=== PATIENT | male | born 1970 | race Two or more races ===

== ENCOUNTER 2024-11-16 13:09 | Emergency (ER) | payer MEDICAID, SELFPAY ==
[2024-11-16 13:10] VITALS: BMI 37.4
--- NOTE | 2024-11-16 13:12 | EKG_ITS ---
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
[2024-11-16 13:19] VITALS: PULSE 80
--- NOTE | 2024-11-16 13:20 | XR_ITS ---
Examination: AP chest single view Technique: Portable AP sitting chest single view. Date and time: November 16, 2024, 1348 hrs. Indications: Onset chest pain today. Findings: Mild enlargement left ventricle. Ectatic thoracic aorta. 9 mm pulmonary nodule right upper lobe which may contain calcium No pneumonia or pulmonary edema. Mild osteopenia. Impression: No pneumonia or pulmonary edema. 9 mm pulmonary nodule right upper lobe, in the absence of prior chest films recommend 3 month follow-up PA lateral chest
[2024-11-16 13:21] VITALS: BP 239/149; BP 244/135; PULSE 87; RESP 24; TEMP 36.7; O2SAT 99
--- NOTE | 2024-11-16 13:25 | EDNOTE_ITS ---
ED Chest Pain RME/HPI General Chief Complaint: Chest Pain Stated Complaint: CHEST PAIN Time Seen by Provider: 11/16/24 13:25 Arrival date/time: 11/16/24 13:09 Limitations: no limitations RME / HPI RME / HPI narrative: 54 year old male with history of hypertension, diabetes, and hyperlipidemia with medication noncompliance presents to the ED for evaluation of acute onset chest pain beginning ~ 45 minutes prior to arrival while sitting watching tv. Described as a tightness sensation that is located most to the left side of chest with radiation to his left neck and jaw, rating 9/10 in severity. Accompanied by diaphoresis. Denies nausea or vomiting. Denies any known cardiac history. Denies shortness of breath. Related Data Allergies Allergy/AdvReac Type Severity Reaction Status Date / Time No Known Allergies Allergy Verified 11/16/24 13:10 Review of Systems Review of Systems Systems Reviewed: All systems reviewed, normal except as documented Past Medical History Past Medical History CARDIAC: Negative Congestive Heart Failure RESPIRATORY: Negative Chronic Obstructive Pulmonary Disease (COPD) GENITOURINARY: Negative Renal Disease ENDOCRINE: Positive Diabetes Mellitus Type 2; Negative Diabetes Mellitus Type 1 Social History SMOKING STATUS: Never smoker ED Exam General Limitations: Present no limitations General appearance: Present alert and other (diaphoretic, tachypneic, appears to be in pain ) Head Head exam: Present atraumatic, normocephalic and normal inspection Eye Eye exam: Present normal appearance, PERRL and EOMI ENT ENT exam: Present normal exam, normal oropharynx and mucous membranes moist Neck Neck exam: Present normal inspection, full ROM and trachea midline Chest Chest inspection: Present normal inspection and symmetric chest wall rise Respiratory Respiratory exam: Present normal lung sounds bilaterally Cardiovascular Cardiovascular exam: Present regular rate, normal rhythm and normal heart sounds Abdominal Exam Abdominal exam: Present soft and normal bowel sounds Extremities Exam Extremities exam: Present normal inspection and full ROM Back Exam Back exam: Present normal inspection and full ROM Neurological Exam Neurological exam: Present alert, oriented X3 and CN II-XII intact Psychiatric Psychiatric exam: Present normal affect and normal mood Skin Skin exam: Present warm, intact, normal color and diaphoresis Course Quality Measures none Orders Category Date Time Status Surgical Instrument Repair Specialist NOW Care 11/16/24 13:19 Completed Continuous Pulse Oximetry NOW Care 11/16/24 13:19 Completed EKG (ED ONLY) *Do not use* NOW Care 11/16/24 13:12 Completed Insert IV NOW Care 11/16/24 13:19 Completed Consult to Cardiology Stat Cons 11/16/24 13:20 Ordered CA echo doppler complete Stat Exams 11/16/24 13:41 Taken EKG (ED Only) Stat Exams 11/16/24 13:12 Draft XR chest 1V portable Stat Exams 11/16/24 13:20 Completed B-Type Natriuretic Peptide Stat Lab 11/16/24 13:24 Completed CBC Stat Lab 11/16/24 13:24 Completed Comprehensive Metabolic Panel Stat Lab 11/16/24 13:24 Completed Magnesium Stat Lab 11/16/24 13:24 Completed Partial Thromboplastin Time Stat Lab 11/16/24 13:24 Completed Path Review Blood Smear Stat Lab 11/16/24 13:24 Completed Prothrombin Time with INR Stat Lab 11/16/24 13:24 Completed Troponin I Stat Lab 11/16/24 13:24 Completed Aspirin Med 11/16/24 13:27 Discontinued 325 mg PO X1 ONE Heparin Inj Med 11/16/24 13:27 Discontinued 5,000 unit IVP X1 ONE Heparin/D5w 25K 250 ML Ivpb [Heparin in D5w Ivpb] Med 11/16/24 13:30 Discontinued 25,000 unit in 250 ml IV 10 units/kg/hr Morphine Inj Med 11/16/24 13:27 Discontinued 4 mg IVP X1 ONE Nitroglycerin [Nitrostat 1/150] Med 11/16/24 13:31 Discontinued 0.4 mg SL .STK-MED ONE Nitroglycerin/D5w 50 MG IVPB [Nitroglycerin in D5w Ivpb Med 11/16/24 13:30 Discontinued ] 50 mg in 250 ml IV 5 mcg/min Ondansetron Inj [Zofran Inj] Med 11/16/24 13:32 Discontinued 4 mg IVP X1 ONE Vital Signs Vital signs: Vital Signs Pulse Rate 80 11/16/24 13:19 Pulse ox is 99% on room air which is adequate. Chest Pain MDM Narrative MDM Narrative:: Jeane Huff am scribing for and in the presence of Dr. Bolanos. 1410: EMS here to transfer the patient. Patient data External records reviewed:: None (No previous ED visits for review ) Clinical information provided by:: patient Social determinants that could affect healthcare access:: none Patient has the following chronic illnesses:: HTN, DM, HLD with medication noncompliance How is presenting disease/condition affected by chronic disease/condition?: exacerbated by Evaluation data The following diagnostics were reviewed and interpreted by me:: lab results and EKG tracing(s) (EKG @ 13:15. NSR, HR 85, LAD, no ectopy, ST elevation in lead I and aVL as well as V1 and V2, ST depression in II III and aVF, positive STEMI. ) Lab and/or radiology exams considered but not ordered:: None Interpretation Summary: As noted above Medications / Prescriptions Medications or Prescriptions considered but not ordered:: None Medication administrations:: Medication Administration History Discontinued Medications Aspirin (Aspirin 325 Mg Tablet) 325 mg PO X1 ONE Stop: 11/16/24 13:28 Last Admin: 11/16/24 13:40 Dose: 325 mg Documented By: TONNY Heparin Sodium (Porcine) (Heparin Sod Inj 5000 Unit/Ml Vial) 5,000 unit IVP X1 ONE Stop: 11/16/24 13:28 Last Admin: 11/16/24 13:39 Dose: 5,000 unit Documented By: TONNY Co-signed By: LUIS Heparin Sodium/Dextrose (Heparin In D5w Ivpb) 25,000 unit in 250 mls @ 10.206 mls/hr IV .Q24H KIM; Protocol Stop: 11/30/24 13:29 Last Admin: 11/16/24 13:41 Dose: 10 units/kg/hr, 10.206 mls/hr Documented By: TONNY Co-signed By: LUIS Nitroglycerin/Dextrose (Nitroglycerin In D5w Ivpb) 50 mg in 250 mls @ 1.5 mls/hr IV .Q24H PRN; Protocol PRN Reason: PER PROTOCOL Stop: 12/16/24 13:29 Last Admin: 11/16/24 13:50 Dose: 5 mcg/min, 1.5 mls/hr Documented By: TONNY Morphine Sulfate (Morphine Sulf Inj 10 Mg/Ml Vial) 4 mg IVP X1 ONE Stop: 11/16/24 13:28 Last Admin: 11/16/24 13:38 Dose: 4 mg Documented By: TONNY Nitroglycerin (Nitroglycerin 0.4 Mg Subl Btl #25) Confirm Administered Dose 0.4 mg SL .STK-MED ONE Stop: 11/16/24 13:32 Ondansetron HCl (Ondansetron Inj 2 Mg/Ml Inj 2 Ml) 4 mg IVP X1 ONE; Protocol Stop: 11/16/24 13:33 Last Admin: 11/16/24 13:43 Dose: 4 mg Documented By: TONNY See above Consultations Consultation(s) initiated? (list below): Yes Consultation #1 (Physician, Specialty, Details): I spoke with precision lens grinder apprentice Dr. Rangel. Discussed patients PMHx, HPI, ED course, exam findings, and EKG. Advise starting the patient on aspirin, heparin, nitro. He agrees this is a STEMI. Time: 13:26 Consultation #2 (Physician, Specialty, Details): I spoke with transfer nurse and precision lens grinder apprentice Dr. Mcclendon at [facility]. Discussed patients PMHx, HPI, ED course, exam findings, labs, and EKG results. Patient accepted for transfer, ER to ER. Time: 13:43 Diagnosis Chest Pain Differential Diagnosis: stable angina, atypical chest pain, st elevation myocardial infarction, costochondritis and chest pain Most likely diagnosis given after review of the tests above:: STEMI Admission Indicated Admission indicated?: not indicated Admission Request Was there a request for admission?: No Disposition Plan Disposition Plan: Transfer Critical Care Time Critical Care Time Critical Care Time: Yes Total Critical Care Time (min.): 35 Attestation: The high probability of sudden, clinically significant deterioration in the patient's condition required the highest level of my preparedness to intervene urgently. The services I provided to this patient were to treat and/or prevent clinically significant deterioration. Services included the following: chart data review, reviewing nursing notes and/or old charts, documentation time, commercial solar sales consultant collaboration regarding findings and treatment options, medication orders and management, direct patient care, vital sign assessments and ordering, interpreting and reviewing diagnostic studies and lab tests. Aggregate critical care time includes only time during which I was engaged in work directly related to the patient's care, as described above, whether at bedside or elsewhere in the Emergency Department. It did not include time spent performing other reported procedures or the services of residents, students, nurses or physician assistants. Discharge Plan Plan Patient Disposition: [facility] Pt Being Transferred to: [facility] Service Needed for Transfer: Cardiology Discharge Disposition comment: nano Mcclendon accepts transfer Patient condition on transfer: Stable Problem List Clinical Impression: ST elevation (STEMI) myocardial infarction Patient/Caregiver Discharge Instructions Print Language: Puerto Rican Stand Alone Forms: Sharon Award Info., Patient Portal Info Letter
--- NOTE | 2024-11-16 13:25 | PC.NURSE ---
Pt was positive for a stemi buffet server Rivas Infante at bedside gave a verbal order for nitro sublingual had to override in pyxis and give stat dose to pt for chest pain
--- NOTE | 2024-11-16 13:30 | PD.RESCONSUL ---
HPI Data of Consult Consult date: 11/16/24 Primary Care Provider: Physician No Primary/Family Consult Narrative History of present illness: The patient is a 54-year-old man with past medical history of hypertension, diabetes mellitus type 2, hyperlipidemia with noncompliance to medications presented to ED with chief complaint of acute chest pain that started about 45 minutes ago, before coming to the ED. The patient reported that he was watching television this afternoon, and suddenly started having left-sided chest tightness radiating to left neck and jaw, associated with diaphoresis. He reported that couple months ago, he has had similar type of chest pain, but did not seek for any medical attention at that time, and relieved on its own after few minutes. However, that episode of pain was not as intense as this 1. He reported this episode to be painful 9/10 in intensity. He reported that, for past 5 to 6 months, he has not been taking any medications. He denied any dizziness, SOB, orthopnea or PND, palpitations, abdominal pain, any changes in bowel or bladder habit, fever or chills, nausea or vomiting. During my evaluation, his blood pressure was 244/135, pulse rate 87, RR 22, saturating 99% on room air. Labs are significant for white count 14.7, hemoglobin 16.2, coag panel WNL, potassium 4.0, bicarb 27.7, BUN/creatinine 13/1.1, blood sugar 309, magnesium 1.5, T. bili 1.3, troponin 0.055 BNP 38, EKG was significant for ST segment elevation on lead I and aVL including V1 and V2, with reciprocal changes in lead III, aVF. Chest x-ray was significant for 9 mm pulmonary nodule on right upper lobe, and no previous CXR to compare. The patient was given nitroglycerin drip, and ordered aspirin 325 mg x 1, and morphine sulfate 4 mg IV x 1. Cardiology is consultation was done for further management of ACS, and cardiology recommended sublingual nitro, heparin sodium 5000 unit IVP x 1, and was started on heparin drip. PMH: As mentioned above Surgical history: No surgeries Family history: Significant for diabetes mellitus type 2 and hypertension in father and mother Medications: Not taking any medications, noncompliant Allergies: No known allergies Social history: Patient lives with his and children at [place], works in the field, and has good social support. Denied any tobacco use or illicit drug use. Admitted occasional social drinking. cc:: cc: Review of Systems Review of Systems Systems Reviewed: All systems reviewed, normal except as documented Exam Vital Signs Temp Pulse Resp BP Pulse Ox O2 Del Method 98.1 F 87 24 H 239/149 H 99 Room Air 11/16/24 13:21 11/16/24 13:50 11/16/24 13:21 11/16/24 13:50 11/16/24 13:21 11/16/24 13:21 Narrative Exam General: No acute distress, Alert and Oriented x 3, diaphoretic HEENT: Moist mucous membranes, oropharynx clear Neck: Supple, No masses, No JVD CVS: S1S2 Regular rate and rhythm, No murmurs, rubs or gallops Lungs: Clear to auscultation with no accessory use, no wheeze no rhonchi Abd: Soft, NT/ND, +BS, no organomegaly Ext: No edema, warm and well perfused Skin: No rash Psych: In pain Results Labs 11/16/24 13:24 11/16/24 13:24 Labs: Short CBC 11/16/24 Range/Units 13:24 WBC 14.7 H (3.8-10.6) Thou/mm3 Hgb 16.2 H (13.5-16.0) g/dL Hct 45.7 (41.0-53.0) % Plt Count 276 (140-440) Thou/mm3 BMP 11/16/24 13:24 Sodium 140 Potassium 4.0 Chloride 102 Carbon Dioxide 27.1 BUN 13 Creatinine 1.1 Glucose 309 H Calcium 9.7 Cardiac Enzymes 11/16/24 Range/Units 13:24 Troponin I 0.055 H* (0.0-0.045) ng/mL Liver Function 11/16/24 Range/Units 13:24 Total Bilirubin 1.3 H (0.3-1.2) mg/dL AST 15 (0-34) U/L ALT 22 (10-49) U/L Alkaline Phosphatase 117 H (46-116) U/L Albumin 4.9 (3.5-5.0) gm/dL Quality Measures Quality Measures none Medications Home Medications and Allergies Allergies Allergy/AdvReac Type Severity Reaction Status Date / Time No Known Allergies Allergy Verified 11/16/24 13:10 Visit Medications Discontinued Medications Aspirin (Aspirin 325 Mg Tablet) 325 mg PO X1 ONE Stop: 11/16/24 13:28 Last Admin: 11/16/24 13:40 Dose: 325 mg Heparin Sodium (Porcine) (Heparin Sod Inj 5000 Unit/Ml Vial) 5,000 unit IVP X1 ONE Stop: 11/16/24 13:28 Last Admin: 11/16/24 13:39 Dose: 5,000 unit Heparin Sodium/Dextrose (Heparin In D5w Ivpb) 25,000 unit in 250 mls @ 10.206 mls/hr IV .Q24H KIM; Protocol Stop: 11/30/24 13:29 Last Admin: 11/16/24 13:41 Dose: 10 units/kg/hr, 10.206 mls/hr Nitroglycerin/Dextrose (Nitroglycerin In D5w Ivpb) 50 mg in 250 mls @ 1.5 mls/hr IV .Q24H PRN; Protocol PRN Reason: PER PROTOCOL Stop: 12/16/24 13:29 Last Admin: 11/16/24 13:50 Dose: 5 mcg/min, 1.5 mls/hr Morphine Sulfate (Morphine Sulf Inj 10 Mg/Ml Vial) 4 mg IVP X1 ONE Stop: 11/16/24 13:28 Last Admin: 11/16/24 13:38 Dose: 4 mg Ondansetron HCl (Ondansetron Inj 2 Mg/Ml Inj 2 Ml) 4 mg IVP X1 ONE; Protocol Stop: 11/16/24 13:33 Last Admin: 11/16/24 13:43 Dose: 4 mg Assessment & Plan Plan The patient is a 54-year-old man with past medical history of hypertension, diabetes mellitus type 2, hyperlipidemia with noncompliance to medications presented to ED with chief complaint of acute chest pain that started about 45 minutes ago, before coming to the ED. The patient reported that he was watching television this afternoon, and suddenly started having left-sided chest tightness radiating to left neck and jaw, associated with diaphoresis. He reported that couple months ago, he has had similar type of chest pain, but did not seek for any medical attention at that time, and relieved on its own after few minutes. However, that episode of pain was not as intense as this 1. He reported this episode to be painful 9/10 in intensity. He reported that, for past 5 to 6 months, he has not been taking any medications. He denied any dizziness, SOB, orthopnea or PND, palpitations, abdominal pain, any changes in bowel or bladder habit, fever or chills, nausea or vomiting. During my evaluation, his blood pressure was 244/135, pulse rate 87, RR 22, saturating 99% on room air. Labs are significant for white count 14.7, hemoglobin 16.2, coag panel WNL, potassium 4.0, bicarb 27.7, BUN/creatinine 13/1.1, blood sugar 309, magnesium 1.5, T. bili 1.3, troponin 0.055 BNP 38, EKG was significant for ST segment elevation on lead I and aVL including V1 and V2, with reciprocal changes in lead III, aVF. Chest x-ray was significant for 9 mm pulmonary nodule on right upper lobe, and no previous CXR to compare. The patient was given nitroglycerin drip, and ordered aspirin 325 mg x 1, and morphine sulfate 4 mg IV x 1. Cardiology is consultation was done for further management of ACS, and cardiology recommended sublingual nitro, heparin sodium 5000 unit IVP x 1, and was started on heparin drip. #STEMI #Hypertensive emergency Presented with left-sided chest pressure like pain, 9/10 in intensity, was diaphoretic, has history significant for noncompliance with medications for hypertension, diabetes mellitus and hyperlipidemia. EKG revealed ST segment elevation in lead I and aVL with reciprocal changes in lead III and aVF. TTE done was significant for no structural abnormalities, with LVEF 60 to 65%. - Heparin 5000 units IV x 1 - Aspirin 325 mg chewable x 1 - Sublingual nitro x 2 - Started on heparin drip - Transfer to STEMI center [facility] - IV nitroglycerin drip to bring down blood pressure by 20% in past 1 hour, followed by slow stabilization of blood pressure. - Trend troponin - Maintain potassium and magnesium greater than 4 and greater than 2 respectively all the time #Uncontrolled hypertension #Uncontrolled diabetes mellitus type 2 #Hyperlipidemia The patient is noncompliant with his medications - After management of hypertensive emergency, transition to oral antihypertensive - Patient education on diabetes mellitus, hypertension and hyperlipidemia - Atorvastatin 40 Mg daily at night Rest of the management deferred to primary ED physician. Thank you for cardiology consultation. We appreciate for the opportunity to participate in this patient care. The patient's management plan was discussed with my attending physician MD Rasta Barajas MD, PGY3 Attending Provider Attestation/Addendum I have personally seen and examined the patient separately on the above date of service and discussed the plan of care with the resident. I reviewed the resident Dr. Rasta Smith consultation progress note and agree with the resident findings and plan in the note above and have also edited the documentation to reflect my findings and plan. 84-year-old male with a past medical history of essential hypertension, type 2 diabetes mellitus, hyperlipidemia, obesity, noncompliant with medications and doctor visits presented to the emergency department for chief complaint of chest pain that started about 45 minutes ago before coming to the ED. Patient was apparently watching his television and was resting and suddenly started to have decided chest pain and chest tightness radiating to the left neck as well as the jaw associated with shortness of breath patient did also have diaphoresis later in the emergency department. Described this as 10/10 in intensity pressure-like sensation like something sitting on his chest. He never had this kind of pain before with such intensity. He did have a previous episode of chest pain. A couple of months ago but he did not ever see a doctor. Cardiology was consulted after the initial EKG was performed for question of STEMI. I did review the EKG and it did show ST elevation in 1 and aVL along with ST depressions in lead III and aVF suggesting a lateral STEMI mostly involving the left circumflex. Cardiac alert was activated immediately and recommended to transfer the patient to [facility]. During my evaluation patient blood pressure was elevated 240/140 mmHg and heart rate was around 80 to 90 bpm respiratory rate 20 to 30/min and saturating 99% on oxygen at 2 L nasal cannula. 1. Acute coronary syndrome 2. STEMI 3. Uncontrolled hypertension 4. Diabetes mellitus 5. Hyperlipidemia 6. Obesity 7. Noncompliance with medications and doctor visits Patient presented with severe 10 out of 10 chest pain which was substernal radiating to the jaw as well as the left and associated with shortness of breath as well as significant diaphoresis. Described as a pressure sensation and something heavy placed on his chest. EKG with high lateral STEMI with vomiting of [address] elevations with reciprocal ST depressions in leads III and aVF. Recommended to call cardiac alert for [facility] immediately and I did call the transfer center also. Patient was having significant chest pain and during my evaluation and recommended to first give 0.4 Mg nitroglycerin sublingual which helped a little with his pain. Repeated the nitroglycerin 0.4 Mg x 1 again. His blood pressure was elevated at 248/140 mmHg. Patient was recommended to give 5000 units of heparin IV bolus and then start the patient on heparin drip stat. Aspirin 325 mg x 1 is also given. High intensity statin Lipitor was also recommended. Patient was already ordered nitro drip and intermittent patient was started on 5 mcg/kg and recommended to decrease the blood pressure in the systolic of 170-180 and not decrease it quickly. After starting the nitro drip patient's pain subsided. There was no evidence of any bleeds. Stable patient secondary right heart failure. Stat echo was performed at the bedside which showed normal EF with an EF of 55 to 60% normal LV size and function as well as normal RV size and function. There was no evidence of pericardial effusions and no significant regional wall motion abnormalities. Present. Suspect LCx there is branches occlusion based on the EKG and the presentation. Morphine was recommended for pain and 4 mg IV was given. Stat labs were drawn along with's a chest x-ray which did not show any acute pathology except for mild cardiomegaly. Patient continues to be hemodynamically stable nitro drip and heparin drip and was immediately transferred out of the ED to [facility] after acceptance by the foil cutter on-call. There is a high probability of sudden, clinically significant or life threatening deterioration in the patient condition which required the highest level of physician preparedness to intervene urgently. I have personally spent 65 minutes of critical care time, exclusive of time spent on any procedures, in evaluation and management of this critically ill patient. Management of rest of the medical conditions as per primary team and other consultants. Thank you for the consult and allowing me to participate in the care of the patient. Cardiology will continue to follow. Rivas Rangel M.D. Interventional Cardiology.
--- NOTE | 2024-11-16 13:30 | PC.CC ---
Addendum entered by Kaylynn Norman RN 11/16/24 14:29: 1420 sent paperwork to [facility] through [employer]. [facility] spoke to Sera and she confirmed that she received the paperwork. Addendum entered by Kaylynn Norman RN 11/16/24 14:22: 1415 called Veena at [facility] that pt is leaving the hospital. Addendum entered by Kaylynn Norman RN 11/16/24 14:21: 1355 transfer packet is complete with CD inside including all signatures. Gave transfer packet to charge nurse and number to call for report. 1351 called [facility], spoke to Josefina and set up the stat transfer. Pt is transferring with [facility]. Addendum entered by Kaylynn Norman RN 11/16/24 13:50: 1342 received call from Veena at [facility], she wants to speak with Dr. Mcclendon. Conference call connected. Dr. Mcclendon accepted the pt for ED to ED transfer. Veena gave me accepting info. Report can be at [phone]. Original Note: 1335 sent face sheet and EKG to [facility]. 1332 called [facility] ED at [phone], spoke to Veena and initiated the transfer. Veena stated to fax face sheet and EKG at transfer center fax. I informed her pt just got here, there are no clinicals available. Veena stated to just fax the face sheet and EKG. Veena stated she will call back and connect the doctors. 1331 Called [facility] to initiate the stat transfer request. Left VM. Got automated recording that if it is stat transfer request, call ED at [phone]. 1330 received call from ED charge nurse pt needs to be transferred for [facility] needs cardiology services. Charge nurse informed me that 45 min ago pt started feeling chest pressure and diaphoresis, dx of untreated DM, HTN and high cholestrol.
[2024-11-16 13:31] VITALS: BP 210/118; PULSE 88
[2024-11-16] MEDS: NITROGLYCERIN 0.4 MG SUBL BTL #25 SL (13:31)
[2024-11-16 13:36] LABS: Basophils # (Auto) 0.1 Thou/mm3 (0.0-0.2); Basophils % (Auto) 1 % (0-2.5); Eosinophils # (Auto) 0.1 Thou/mm3 (0.0-0.5); Eosinophils % (Auto) 1 % (0-10); Hematocrit 45.7 % (41.0-53.0); Hemoglobin 16.2 g/dL (13.5-16.0); Immature Granulocytes Auto 0.21 Thou/mm3 (0.00-0.00); Lymphocytes # (Auto) 5.3 Thou/mm3 (1.0-4.8); Lymphocytes % (Auto) 36 % (10-50); Mean Corpuscular HGB Conc 35.4 g/dl (31.0-37.0); Mean Corpuscular Hemoglobin 28.9 pg (25.0-35.0); Mean Corpuscular Volume 82 fL (80-100); Monocytes # (Auto) 1.3 Thou/mm3 (0.0-0.8); Monocytes % (Auto) 9 % (0-12); Neutrophils # (Auto) 7.7 Thou/mm3 (1.8-7.7); Neutrophils % (Auto) 52 % (37-80); Nucleated Red Blood Cell # 0.00 Thou/mm3 (0.00-0.00); Nucleated Red Blood Cell % 0 /100 WBC (0); Platelet Count 276 Thou/mm3 (140-440); RDW Standard Deviation 37.3 fL (35.1-43.9); Red Blood Count 5.60 Miln/mm3 (4.50-5.90); White Blood Count 14.7 Thou/mm3 (3.8-10.6)
[2024-11-16] MEDS: MORPHINE SULF INJ 10 MG/ML VIAL 4 MG IVP (13:38)
[2024-11-16] MEDS: HEPARIN SOD INJ 5000 UNIT/ML VIAL IVP (13:39)
[2024-11-16] MEDS: Heparin/D5w 25K 250 ML Ivpb 25,000 UNIT/250 ML BAG 10.206 UNIT IV (13:41)
--- NOTE | 2024-11-16 13:41 | ECHO_ITS ---
Transthoracic Echo Report Ht (in): 65 Wt (lb): 225 Exam Location: Echo Lab Status: Preadmit Bean Snapper: Antonieta Silver Indications: Procedure Performed: BP: 244 / 135 HR: 87 Technical Quality: Very technically difficult study MEASUREMENTS (Male / Female) Normal Values DOPPLER MV Area PHT 4.9 cm? Mitral E Point Velocity 26.7 cm/s Mitral A Point Velocity 34.9 cm/s Mitral E to A Ratio 0.8 LV E' Lateral Velocity 9.4 cm/s Mitral E to LV E' Lateral Ratio 2.9 LV E' Septal Velocity 3.7 cm/s Mitral E to LV E' Septal Ratio 7.2 FINDINGS Left Ventricle Normal left ventricular size, wall thickness. The ejection fraction is visually estimated at 45 %. Global left ventricular systolic function is mildly decreased. Right Ventricle The right ventricle not well visualized. Left Atrium The left atrium is normal by two-dimensional, color flow and Doppler imaging with no structural abnormalities, no thrombus formation present. Right Atrium The right atrium is normal by two-dimensional imaging, color flow and Doppler imaging with no structural abnormalities, no thrombus formation present. Atrial Septum The interatrial septum appears normal with no evidence of a shunt. Aorta The aorta is normal by two-dimensional, color flow and Doppler interrogation. Mitral Valve The mitral valve is not well visualized. Aortic Valve The aortic valve is not well visualized. Tricuspid Valve The tricuspid valve is not well visualized. Pulmonic Valve The pulmonic valve is not well visualized. There is no significant pulmonic valve regurgitation. Vessels The pulmonary artery appears normal. The inferior vena cava pulmonary and hepatic veins appear normal. Pericardium The pericardium is normal by two-dimensional imaging. There is no significant pericardial effusion. CONCLUSIONS Indication: STEMI Normal LV size and function. Estimated EF 55 to 60%. Normal diastolic function. The right ventricle not well visualized but appears to have normal function. No significant pericardial effusion. Trace MR and TR. Rivas Rangel (Electronically Signed) Final Date: 16 November 2024 23:36
[2024-11-16] MEDS: ONDANSETRON INJ 2 MG/ML INJ 2 ML 4 MG IVP (13:43)
[2024-11-16 13:47] LABS: INR 1.0 (0.9-1.3); Partial Thromboplastin Time 27.6 Seconds (22.0-36.0); Prothrombin Time 10.6 Seconds (9.0-12.2)
[2024-11-16 13:50] VITALS: BP 239/149; PULSE 87
[2024-11-16] MEDS: Nitroglycerin/D5w 50 MG IVPB 50 MG/250 ML BTL IV (13:50)
[2024-11-16 13:56] LABS: B-Type Natriuretic Peptide 38 pg/mL (0-100)
[2024-11-16 14:05] LABS: Alanine Aminotransferase 22 U/L (10-49); Albumin, Serum 4.9 gm/dL (3.5-5.0); Albumin/Globulin Ratio 1.7 (1.2-2.2); Alkaline Phosphatase 117 U/L (46-116); Anion Gap 11 (7-16); Aspartate Amino Transferase 15 U/L (0-34); BUN/Creatinine Ratio 12 Ratio (12-20); Bilirubin,Total 1.3 mg/dL (0.3-1.2); Blood Urea Nitrogen 13 mg/dL (9-23); Calcium 9.7 mg/dL (8.3-10.6); Calcium (Corrected) 9.7 mg/dL (8.5-10.1); Carbon Dioxide 27.1 mMol/L (20.0-31.0); Chloride 102 mMol/L (98-107); Creatinine (Component) 1.1 mg/dL (0.6-1.3); Estimated Creatinine Clearance 86.4 mL/min (>60); Globulin 2.9 gm/dL (2.3-3.5); Glucose 309 mg/dL (74-106); Magnesium 1.5 mg/dL (1.6-2.6); Osmolality,Calculated 291 (275-295); Potassium 4.0 mMol/L (3.4-5.1); Sodium 140 mMol/L (136-145); Total Protein 7.8 gm/dL (5.7-8.2); eGFR > 60 See Note
[2024-11-16 14:09] LABS: Troponin I 0.055 ng/mL (0.0-0.045)
--- NOTE | 2024-11-16 14:11 | PC.NURSE ---
Pt transferred via EMS with [facility] Report called to Theresa. Pts Troponin as pt was wheeling out the ER was reported as 0.055
[2024-11-16 16:05] LABS: Path Review Blood Smear Sent to Pathologist
== END 2024-11-16 14:10 | disposition short-term general hospital (02) ==
LOC: SERX 14:11
PROVIDERS: Emergency Provider Emergency Medicine
DX: I21.3 ST elevation (STEMI) myocardial infarction of unspecified site (principal); E11.65 Type 2 diabetes mellitus with hyperglycemia; R91.1 Solitary pulmonary nodule; E78.5 Hyperlipidemia, unspecified; I10 Essential (primary) hypertension; Z91.148 Patient's other noncompliance with medication regimen for other reason
CPT/HCPCS: 36415; 71045; 80053; 83735; 83880; 84484; 85025; 85610; 85730; 93005; 93306; 96374; 96375; 99284; J1644; J2270; J2405; J3490; A9270; J2305